=== PATIENT | male | born 1965 | race American Indian/Alaskan Native ===

== ENCOUNTER 2018-05-16 05:29 | Day surgery (SDC) | payer OTHER ==
[~2018-05-16] VITALS: Ht 172.7 cm; Wt 79.4 kg
[~2018-05-16 05:29] MED LIST: AMITRIPTYLINE H50 M2 PO; AMITRIPTYLINE100 MG PO; ARICEPT10 M1 PO; CLARITIN10 MG PO; FLONASE 0.05%50 MCG NASAL; LIPITOR10 MG PO; MUCINEX600 MG PO; ZOLOFT100 MG PO
[2018-05-16 07:56] VITALS: BP 147/74
--- NOTE | 2018-05-16 08:13 | EKG ---
[address] [address] ELECTROCARDIOGRAM REPORT Name: SANDY SHAW Room #: 150-5 [facility]#: [id number] ������������������ Admission: 05/16/18 ������������������ Attend Phys: Ryland Fiore MD Discharge: ������������������ Date of : [birth year] Report #: [id number] ����������������������������������������������������������������� [id number] THIS REPORT FOR: //name// [facility] Test Date: 2018-05-16 Test Time: 06:26:54 Pat Name: SANDY SHAW Department: Room: 150 5 Gender: M Records Tech: ELISSA : 1965 Requested By: Ryland Fiore Order Number: [id number] MD: Alon Hoskins Measurements Intervals Brooks Rate: 62 P: 36 IN: 158 QRS: 17 QRSD: 74 T: 11 QT: 373 QTc: 379 Interpretive Statements Sinus rhythm Baseline wander in lead(s) V2 No previous ECG available for comparison Electronically Signed On 05-16-2018 8:13:41 [employer] by Alon Hoskins [email or web address] ��������������������������������������������� <ELECTRONICALLY SIGNED> ���������������������������������������� By: Alon Hoskins MD, [facility] ��������������������������������������������� 05/16/18 0813 0626 5 Alon Hoskins MD, FACC /EPI
[2018-05-16 10:08] VITALS: BP 147/74
--- NOTE | 2018-05-17 10:15 | O ---
[address] [address] OPERATIVE REPORT Name: VALERIASANDY Room #: DEP [facility]..#: [id number] Admission: 05/16/18 ������������������ Attend Phys: Ryland Fiore MD Discharge: 05/16/18 ������������������ Date of : [birth year] Report #: [id number] THIS REPORT FOR: //name// CC: Ryland Maceie Tasha DATE OF SERVICE: 05/16/2018 SERVICE: Orthopedics. FACILITY: [facility] SURGEON: Ryland Fiore M.D. INTERIOR DESIGN PROFESSOR: Latrice Salgado NP. INDICATION FOR INTERIOR DESIGN PROFESSOR: Extremity positioning, suture management and assistance with repair. PREOPERATIVE DIAGNOSES: 1. Left shoulder pain. 2. Left shoulder rotator cuff tear. 3. Left shoulder SLAP tear. 4. Left shoulder biceps tendinitis. 5. Status post previous left shoulder surgery. 6. Work-related job injury, left shoulder. POSTOPERATIVE DIAGNOSES: 1. Left shoulder pain. 2. Left shoulder rotator cuff tear. 3. Left shoulder SLAP tear. 4. Left shoulder biceps tendinitis. 5. Status post previous left shoulder surgery. 6. Work-related job injury, left shoulder. PROCEDURES: 1. Left shoulder arthroscopic rotator cuff repair. 2. Left shoulder arthroscopic biceps tenodesis. 3. Left shoulder arthroscopic subacromial decompression/acromioplasty. 4. Left shoulder extensive arthroscopic debridement. COMPLICATIONS: None. DRAINS: None. SPECIMENS: None. [address] [address] OPERATIVE REPORT Name: SANDY SHAW Room #: [facility].#: [id number] Admission: 05/16/18 ������������������ Attend Phys: Ryland Fiore MD Discharge: 05/16/18 ������������������ Date of : 69 Report #: [id number] ANESTHESIA: General with regional. FINDINGS: 1. High-grade partial thickness bursal-sided rotator cuff tear, treated with Henson and Nephew triple-loaded HEALICOIL suture anchor with lateral row MULTIFIX suture anchor. 2. Biceps tenodesis with locking cerclage suture. HISTORY OF PRESENT ILLNESS: The patient is a 52-year-old gentleman with a history of left shoulder pain following an injury sustained on the job. He had had extensive conservative measures, including rest, activity modifications, physical therapy and corticosteroid injections and had imaging that was suggestive of intra-articular pathology. He had a clear superior labral [id number] SLAP tear. He has some biceps symptoms. He also had rotator cuff symptoms. Although he continued to have overall maintained strength, but did have significant pain. The MRI was equivocal for a high-grade rotator cuff tear, but did show some limited fraying and so plans were made for rotator cuff debridement versus repair with treatment of the SLAP tear with debridement and biceps tenodesis. Risks, benefits, alternatives and indication of surgery were discussed with him in detail. Risks include, but not limited to pain, bleeding, infection, injury to nerves or blood vessels, persistent pain despite surgery, progression of any pre-existing chondral injury, stiffness, need for further surgery as well as complications related to anesthesia such as stroke, heart attack, pulmonary complications, thromboembolic disease and . Despite these risks, he wished to proceed. PROCEDURE IN DETAIL: After the left upper extremity was correctly identified in the preoperative holding area as the operative extremity, the patient underwent placement of single shot regional nerve block. He was then taken to the operating room, where general anesthesia was induced without complications. He was padded appropriately. Prophylactic antibiotics were administered at appropriate time. Left arm was prepped and draped in a standard sterile fashion. Time-out procedure was performed. Standard posterior viewing portal was established. Diagnostic arthroscopy was performed. An anterior portal was established as well. There was noted to be a significant amount of erythema along the anterior aspect of the biceps tendon and there was some fraying within this portion of the rotator interval. The undersurface of the supraspinatus and infraspinatus were normal. The subscapularis was normal. There was significant amount of fraying, degenerative and relatively acute in appearance, of the superior labrum and there was significant instability when the biceps tendon attachment was probed. Shaver was used to perform a debridement of the anterior, superior and posterior labrum, where the tearing was present and then an 18 gauge spinal needle was used to harpoon the biceps tendon to fix it in its anatomic position and then [address] [address] OPERATIVE REPORT Name: VALERIASANDY Room #: DEP [facility] [place]#: [id number] Admission: 05/16/18 ������������������ Attend Phys: Ryland Fiore MD Discharge: 05/16/18 ������������������ Date of : 69 Report #: [id number] biceps tenotomy was performed arthroscopically for a planned tenodesis. Scope was then placed in the subacromial space. There was a significant amount of bursitis that was present. He did have a history of previous shoulder surgery and so the shaver was used to perform a thorough bursectomy in the subacromial space, exposing the rotator cuff tissue. The cuff was normal posteriorly and laterally. However, anterolaterally, the cuff showed a clear high-grade partial-thickness bursal-sided rotator cuff tear at the leading edge of the supraspinatus, just posterior to the point of the spinal needle where it traversed the soft tissue into the biceps tendon. The shaver was used to expose this. The greater tuberosity was then prepared with an elevator as well as the kofi to a fresh surface for healing and then the bicipital groove was opened arthroscopically and the biceps tendon was delivered. A Henson and Nephew triple-loaded 5.5-mm PEEK HEALICOIL suture anchor was then placed in the footprint and 2 of the sutures were used for mattress suture repairs of the supraspinatus and then the third was used for the biceps tenodesis. The suture was passed with one limb with a locking stitch through and around the biceps tendon. The second limb was then placed in a circumferential cerclage around the tendon as well and then tied securely. The biceps tendon stump was then resected. The lateral aspect of the repair still lifted up from the greater tuberosity. So, we made a decision to place a lateral row. Henson and Nephew MULTIFIX suture anchor was then used to perform the lateral row repair, with good compression of the cuff. Secure repair was felt to be achieved at this point. The undersurface of the acromion was then prepared. There was a down projecting osteophyte anterolaterally, just over with this bursal-sided tear and so the bur was used to perform a subacromial decompression acromioplasty with the posterior cutting block technique. No distal clavicle excision was required as this patient had a previous open distal clavicle excision with success. The debridement was completed and instruments were removed. Portal sites were closed. Sterile dressing was applied. The patient was placed in abduction pillow sling and taken to the recovery room in stable condition. There were no complications. All counts were correct. ��������������������������������������������� <ELECTRONICALLY SIGNED> ���������������������������������������� By: Ryland Fiore MD ��������������������������������������������� 05/17/18 1015 [id number] Ryland Fiore MD /nt
== END 2018-05-16 11:20 | disposition home or self-care (01) ==
LOC: OR 05:29 → TBA 05:29 → OR 10:39
DX: M75.102 Unspecified rotator cuff tear or rupture of left shoulder, not specified as traumatic (principal); S43.492A Other sprain of left shoulder joint, initial encounter; M75.22 Bicipital tendinitis, left shoulder; Z98.890 Other specified postprocedural states; M71.9 Bursopathy, unspecified; G43.909 Migraine, unspecified, not intractable, without status migrainosus; F32.9 Major depressive disorder, single episode, unspecified; F41.9 Anxiety disorder, unspecified; E78.00 Pure hypercholesterolemia, unspecified; K21.9 Gastro-esophageal reflux disease without esophagitis
CPT/HCPCS: 50010; 50101; 50172; 50386; 50417; 50733; 50935; 50950; 51038; 51320; 51445; 52001; 52282; 52313; 54170; 55430; 56527; 56617; 57103; 57128; 62110; 62900; 64039; 70005